=== PATIENT | female | born 1945 | race Caucasian/White ===

== ENCOUNTER → 2017-02-06 | Outpatient (CLI) | payer OTHER ==
[~2017-02-06] MED LIST: ACYC-114 PO; ALBU6.7H INH; ALEN70TA5 PO; ASCO500T6 PO; ASPI-496 PO; CALC600T4 PO; CLOB15CR19 TP; GARL1TAB PO; IPRA4AER INH; OMEP-110 PO; OXYB5TAB7 PO; RANI300C PO; SIMV20TA3 PO; TRAM50TA2 PO; UBID100C24 PO; VITA1CAP PO; VITA200C33 PO
== END | disposition home or self-care (01) ==
LOC: STAR 09:03
PROVIDERS: ATTEND Orthopaedic Surgery Foot and Ankle Surgery
DX: Z02.9 Encounter for administrative examinations, unspecified (principal)

== ENCOUNTER 2017-02-28 10:21 | Inpatient (IN) | payer OTHER ==
[~2017-02-28] VITALS: Ht 176.5 cm; Wt 109.2 kg
[2017-02-28] MEDS ORDERED: FENTANYL PF 100 MCG/2ML ONE (12:49)
[2017-02-28] MEDS ORDERED: MIDAZOLAM 1 MG/ML, 2ML ONE (12:49)
[2017-02-28 13:16] VITALS: BP 132/78
[2017-02-28] MEDS ORDERED: LACTATED RINGERS 1,000 ML IV SCH (13:21)
[2017-02-28] MEDS ORDERED: BUPIVACAINE/PF 0.5% ONE (15:42)
[2017-02-28] MEDS ORDERED: LIDOCAINE/PF 1%, 30ML ONE (16:02)
[2017-02-28] MEDS ORDERED: DEXAMETHASONE 4 MG/ML, 1ML ONE (16:26)
[2017-02-28] MEDS ORDERED: CEFAZOLIN 1,000 MG ONE (16:26)
[2017-02-28] MEDS ORDERED: ONDANSETRON 2MG/ML, 2ML ONE (16:26)
[2017-02-28] MEDS ORDERED: LIDOCAINE GEL 2%, 5ML ONE (16:26)
[2017-02-28] MEDS ORDERED: SUCCINYLCHOLINE 20 MG/ML, 10ML ONE (16:26)
[2017-02-28] MEDS ORDERED: PROPOFOL 10 MG/ML, 20ML ONE (16:26)
[2017-02-28] MEDS ORDERED: ROPIvacaine/PF 0.2%, 100ML 550 ML (check volume) INJ ONE (16:30)
[2017-02-28] MEDS ORDERED: EPHEDRINE 50 MG/ML, 1ML IVPush PRN (17:00)
[2017-02-28] MEDS ORDERED: PROMETHAZINE 25 MG/ML, 1ML IV PRN (17:00)
[2017-02-28] MEDS ORDERED: LORazepam 2 MG/ML, 1ML IVPush PRN (17:00)
[2017-02-28] MEDS ORDERED: DIAZEPAM 5 MG/ML, 2ML IVPush PRN (17:00)
[2017-02-28] MEDS ORDERED: LABETALOL 5MG/ML, 20ML IV PRN (17:00)
[2017-02-28] MEDS ORDERED: morphine SULFATE 10 MG/ML, 1ML IV PRN (17:00)
[2017-02-28] MEDS ORDERED: FENTANYL PF 100 MCG/2ML IV PRN (17:00)
[2017-02-28] MEDS ORDERED: MEPERIDINE/PF 25MG/0.5ML IVPush PRN (17:00)
[2017-02-28] MEDS ORDERED: ALBUTEROL/IPRATROPIUM 2.5MG/0.5MG, 3 ML NPPB PRN (17:00)
[2017-02-28] MEDS ORDERED: MIDAZOLAM 1 MG/ML, 2ML IV PRN (17:00)
[2017-02-28] MEDS ORDERED: ACETAMINOPHEN 325 MG TABLET PO PRN ×2 (17:00→21:00)
[2017-02-28] MEDS ORDERED: ONDANSETRON 2MG/ML, 2ML IVPush PRN (17:00)
[2017-02-28] MEDS ORDERED: hydrALAzine 20 MG/ML, 1ML IV PRN (17:00)
[2017-02-28] MEDS ORDERED: HYDROmorphone 1 MG/ML, 1ML IV PRN ×2 (17:00→21:00)
[2017-02-28] MEDS ORDERED: LABETALOL 5MG/ML, 20ML ONE (18:12)
[2017-02-28] MEDS ORDERED: ACETAMINOPHEN 650 MG/20.3 ML UDC ONE (19:20)
[2017-02-28] MEDS ORDERED: ACETAMINOPHEN 325 MG TABLET ONE (19:20)
[2017-02-28] MEDS ORDERED: BISACODYL 10 MG SUPP PR PRN (20:30)
[2017-02-28] MEDS ORDERED: SENNA/DOCUSATE TABLET PO PRN (20:30)
[2017-02-28] MEDS ORDERED: ALBUTEROL SULFATE 90 MCG IH PRN ×2 (21:00→21:37)
[2017-02-28] MEDS ORDERED: DIPHENHYDRAMINE 25 MG CAPSULE PO PRN (21:00)
[2017-02-28] MEDS ORDERED: DIAZEPAM 5 MG TABLET PO PRN (21:00)
[2017-02-28] MEDS ORDERED: RANITIDINE 300 MG PO SCH ×2 (21:00→21:36)
[2017-02-28] MEDS: SODIUM CHLORIDE FLUSH 10ML SYR IVF SCH (21:00)
[2017-02-28] MEDS ORDERED: ONDANSETRON 2MG/ML, 2ML IV PRN (21:00)
[2017-02-28] MEDS ORDERED: ACYCLOVIR 400 MG PO SCH ×2 (21:00→21:37)
[2017-02-28] MEDS ORDERED: PROMETHAZINE 25 MG/ML, 1ML IM PRN (21:00)
[2017-02-28] MEDS ORDERED: ZOLPIDEM 5MG TABLET PO PRN (21:00)
[2017-02-28] MEDS: DOCUSATE 100 MG CAPSULE PO SCH (21:00)
[2017-02-28] MEDS: CLOBETASOL PROPIONATE TP SCH (21:00)
[2017-02-28 23:18] VITALS: BP 95/61
[2017-03-01] MEDS: CEFAZOLIN PMX 2GM/100ML 100 ML IVPB SCH ×2 (00:18→08:40)
[2017-03-01 03:33] VITALS: BP 111/62
[2017-03-01] MEDS ORDERED: ENOXAPARIN 40 MG/0.4 ML SQ SCH (06:00)
[2017-03-01 07:54] VITALS: BP 89/52
[2017-03-01 08:35] VITALS: BP 98/59
[2017-03-01] MEDS: CLOBETASOL PROPIONATE TP SCH (08:45)
[2017-03-01] MEDS ORDERED: OXYBUTYNIN 10 MG PO SCH (09:00)
[2017-03-01] MEDS ORDERED: [UNRECOGNIZED DRUG - OTHER] PO SCH (09:00)
[2017-03-01] MEDS ORDERED: ASPIRIN 81 MG PO SCH (09:00)
[2017-03-01] MEDS ORDERED: UBIDECARENONE PO SCH (09:00)
[2017-03-01] MEDS ORDERED: OMEPRAZOLE 20 MG PO SCH (09:00)
[2017-03-01] MEDS: DOCUSATE 100 MG CAPSULE PO SCH (09:24)
[2017-03-01] MEDS ORDERED: ASPIRIN 81 MG TABLET CHEW PO SCH (10:00)
[2017-03-01] MEDS ORDERED: ASPI-650 PO (11:00)
[2017-03-01] MEDS: SODIUM CHLORIDE FLUSH 10ML SYR IVF SCH ×2 (11:35→11:52)
[2017-03-01 12:50] VITALS: BP 110/68
[2017-03-02] MEDS ORDERED: (Alendronate Sodium 70 MG) PO SCH (09:00)
== END 2017-03-01 13:15 | disposition home or self-care (01) | DRG 469 ==
LOC: ORIP 12:27 → 4NOR 20:00
PROVIDERS: ADMIT Orthopaedic Surgery Foot and Ankle Surgery; ATTEND Orthopaedic Surgery Foot and Ankle Surgery
PROC: 0QPH04Z Removal of Internal Fixation Device from Left Tibia, Open Approach (ICD-10-PCS; 2017-02-28)
PROC: 0L8P0ZZ Division of Left Lower Leg Tendon, Open Approach (ICD-10-PCS; 2017-02-28)
PROC: 0SRG0JZ Replacement of Left Ankle Joint with Synthetic Substitute, Open Approach (ICD-10-PCS; principal; 2017-02-28 15:30)
DX: M12.572 Traumatic arthropathy, left ankle and foot (principal); J44.9 Chronic obstructive pulmonary disease, unspecified; S82.873A Displaced pilon fracture of unspecified tibia, initial encounter for closed fracture; E78.5 Hyperlipidemia, unspecified; K21.9 Gastro-esophageal reflux disease without esophagitis; Z88.2 Allergy status to sulfonamides; Z88.8 Allergy status to other drugs, medicaments and biological substances
CPT/HCPCS: 36415; 76000; 76001; 82565; J0690; J1100; J1650; J2250; J2405; J2704; J2795; J3010; J3490; C1776; J0330; J7120

== ENCOUNTER 2017-03-01 22:30 | Inpatient (IN) | payer OTHER ==
[~2017-03-01] VITALS: Ht 175.3 cm; Wt 97.2 kg
[~2017-03-01 22:30] MED LIST changes: +ASPI-650 PO
[2017-03-01] MEDS ORDERED: SODIUM CHLORIDE FLUSH 10ML SYR IVF ONE (23:00)
[2017-03-01 23:09] LABS: HEMATOCRIT 36.6 % (34.6-47.8); HEMOGLOBIN 12.1 g/dL (11.7-16.4); WHITE BLOOD COUNT 14.8 x10^3/uL (3.4-10)
[2017-03-01 23:16] LABS: BLOOD UREA NITROGEN 15 mg/dL (7-18)
[2017-03-02] MEDS: SIMVASTATIN 20 MG TABLET PO SCH ×2 (01:00→20:42)
[2017-03-02] MEDS ORDERED: DOCUSATE 100 MG CAPSULE PO PRN (01:00)
[2017-03-02] MEDS ORDERED: ENALAPRILAT 1.25 MG/ML, 2ML IVPush PRN (01:00)
[2017-03-02] MEDS ORDERED: TEMAZEPAM 15 MG CAPSULE PO PRN (01:00)
[2017-03-02] MEDS ORDERED: ONDANSETRON ODT 4 MG PO PRN (01:00)
[2017-03-02] MEDS ORDERED: FAMOTIDINE 40 MG TABLET PO SCH (01:00)
[2017-03-02] MEDS ORDERED: ASPIRIN 325 MG TABLET EC PO PRN (01:00)
[2017-03-02] MEDS ORDERED: ACETAMINOPHEN 325 MG TABLET PO PRN (01:00)
[2017-03-02] MEDS ORDERED: ALBUTEROL SULFATE 2.5 MG/3 ML NPPB PRN (01:30)
[2017-03-02 03:22] VITALS: BP 129/75
[2017-03-02 03:38] VITALS: BP 113/58
[2017-03-02 07:34] VITALS: BP 118/56
[2017-03-02 08:18] LABS: HEMATOCRIT 34.6 % (34.6-47.8); HEMOGLOBIN 11.4 g/dL (11.7-16.4); WHITE BLOOD COUNT 11.9 x10^3/uL (3.4-10)
[2017-03-02] MEDS: CLOBETASOL PROPIONATE CRM 0.05%, 15GM TP SCH ×2 (08:24→21:00)
[2017-03-02] MEDS: MULTIVITS,STRESS FORMULA 1 TABLET PO SCH (08:25)
[2017-03-02] MEDS: UBIDECARENONE PO SCH (08:27)
[2017-03-02 08:30] LABS: BLOOD UREA NITROGEN 13 mg/dL (7-18)
[2017-03-02] MEDS: OMEPRAZOLE 20 MG CAPSULE.DR PO SCH (08:36)
[2017-03-02] MEDS: ACYCLOVIR 400 MG TABLET PO SCH ×2 (08:37→20:43)
[2017-03-02] MEDS: ENOXAPARIN 40 MG/0.4 ML SQ SCH (08:38)
[2017-03-02] MEDS ORDERED: OXYBUTYNIN 10 MG HOMEMEDPO SCH (09:00)
[2017-03-02] MEDS ORDERED: OXYBUTYNIN CHLORIDE 5 MG TABLET PO SCH (09:00)
[2017-03-02 12:43] LABS: PATH.CAST-FLAG NOT PRESENT; SPERM-FLAG NOT PRESENT; SRC-FLAG NOT PRESENT; XTAL-FLAG NOT PRESENT; YLC-FLAG NOT PRESENT
[2017-03-02 12:59] VITALS: BP 106/55
[2017-03-02] MEDS ORDERED: ALENDRONATE 70 MG TABLET PO SCH (16:30)
[2017-03-02] MEDS: ALBUTEROL/IPRATROPIUM 2.5MG/0.5MG, 3 ML NPPB SCH ×2 (17:00→23:00)
[2017-03-02 20:15] VITALS: BP 116/58
[2017-03-02] MEDS: RANITIDINE 300 MG HOMEMEDPO SCH (20:43)
[2017-03-02] MEDS: OXYBUTYNIN 10 MG HOMEMEDPO SCH (20:45)
[2017-03-03 02:24] VITALS: BP 113/53
[2017-03-03] MEDS: ALBUTEROL/IPRATROPIUM 2.5MG/0.5MG, 3 ML NPPB SCH (04:59)
[2017-03-03 05:22] LABS: HEMATOCRIT 34.8 % (34.6-47.8); HEMOGLOBIN 11.5 g/dL (11.7-16.4)
[2017-03-03 05:27] LABS: BLOOD UREA NITROGEN 9 mg/dL (7-18)
[2017-03-03] MEDS: OMEPRAZOLE 20 MG CAPSULE.DR PO SCH (05:32)
[2017-03-03] MEDS: ACYCLOVIR 400 MG TABLET PO SCH ×2 (05:32→21:00)
[2017-03-03 06:30] VITALS: BP 110/60
[2017-03-03] MEDS ORDERED: ALENDRONATE 70 MG TABLET PO SCH (06:30)
[2017-03-03] MEDS ORDERED: POTASSIUM CHLORIDE 20 MEQ TAB.ER.PRT PO ONE (06:30)
[2017-03-03] MEDS: CALCIUM CARBONATE 500 MG TAB.CHEW PO SCH (09:00)
[2017-03-03] MEDS: MULTIVITS,STRESS FORMULA 1 TABLET PO SCH (09:00)
[2017-03-03] MEDS: UBIDECARENONE PO SCH (09:00)
[2017-03-03] MEDS: VITAMIN E 400 UNITS CAPSULE PO SCH (09:00)
[2017-03-03] MEDS: ASCORBIC ACID 500 MG TABLET PO SCH (09:00)
[2017-03-03] MEDS: CLOBETASOL PROPIONATE CRM 0.05%, 15GM TP SCH ×2 (09:00→21:00)
[2017-03-03] MEDS: ENOXAPARIN 40 MG/0.4 ML SQ SCH (09:17)
[2017-03-03 12:24] VITALS: BP 111/47
[2017-03-03 19:10] VITALS: BP 112/60
[2017-03-03] MEDS: RANITIDINE 300 MG HOMEMEDPO SCH (21:00)
[2017-03-03] MEDS: OXYBUTYNIN 10 MG HOMEMEDPO SCH (21:00)
[2017-03-03] MEDS: SIMVASTATIN 20 MG TABLET PO SCH (21:00)
[2017-03-04 02:53] VITALS: BP 114/66
[2017-03-04 07:30] VITALS: BP 142/75
[2017-03-04] MEDS: OXYBUTYNIN 10 MG HOMEMEDPO SCH (09:00)
[2017-03-04] MEDS: UBIDECARENONE PO SCH (09:00)
[2017-03-04] MEDS: VITAMIN E 400 UNITS CAPSULE PO SCH (09:00)
[2017-03-04] MEDS: MULTIVITS,STRESS FORMULA 1 TABLET PO SCH (09:00)
[2017-03-04] MEDS: CLOBETASOL PROPIONATE CRM 0.05%, 15GM TP SCH ×2 (09:00→20:56)
[2017-03-04] MEDS: CALCIUM CARBONATE 500 MG TAB.CHEW PO SCH (09:00)
[2017-03-04] MEDS: ASCORBIC ACID 500 MG TABLET PO SCH (09:00)
[2017-03-04] MEDS: OMEPRAZOLE 20 MG CAPSULE.DR PO SCH (09:39)
[2017-03-04] MEDS: ACYCLOVIR 400 MG TABLET PO SCH ×2 (09:39→20:56)
[2017-03-04] MEDS: ENOXAPARIN 40 MG/0.4 ML SQ SCH (09:40)
[2017-03-04 15:10] VITALS: BP 136/80
[2017-03-04 20:02] VITALS: BP 128/82
[2017-03-04] MEDS: RANITIDINE 300 MG HOMEMEDPO SCH (20:56)
[2017-03-04] MEDS: SIMVASTATIN 20 MG TABLET PO SCH (21:00)
[2017-03-04] MEDS ORDERED: OXYBUTYNIN 10 MG HOMEMEDPO SCH (21:00)
[2017-03-05 03:15] VITALS: BP 138/53
[2017-03-05 07:26] VITALS: BP 132/76
[2017-03-05] MEDS: VITAMIN E 400 UNITS CAPSULE PO SCH (09:00)
[2017-03-05] MEDS: OMEPRAZOLE 20 MG CAPSULE.DR PO SCH (09:27)
[2017-03-05] MEDS: ENOXAPARIN 40 MG/0.4 ML SQ SCH (09:28)
[2017-03-05] MEDS: ACYCLOVIR 400 MG TABLET PO SCH (09:28)
[2017-03-05] MEDS: MULTIVITS,STRESS FORMULA 1 TABLET PO SCH (09:28)
[2017-03-05] MEDS: ASCORBIC ACID 500 MG TABLET PO SCH (09:28)
[2017-03-05] MEDS: CALCIUM CARBONATE 500 MG TAB.CHEW PO SCH (09:29)
[2017-03-05] MEDS: UBIDECARENONE PO SCH (09:29)
[2017-03-05] MEDS: CLOBETASOL PROPIONATE CRM 0.05%, 15GM TP SCH (09:29)
[2017-03-05] MEDS ORDERED: ASPI-650 PO (09:52)
[2017-03-05 11:12] VITALS: BP 127/75
== END 2017-03-05 11:15 | DRG 556 ==
LOC: ED 03-02 → EDIP 03-02 00:32 → 4NOR 03-02 00:48
PROVIDERS: ADMIT Internal Medicine; ATTEND Hospitalist
DX: R26.2 Difficulty in walking, not elsewhere classified (principal); J44.9 Chronic obstructive pulmonary disease, unspecified; D64.9 Anemia, unspecified; D72.829 Elevated white blood cell count, unspecified; N32.81 Overactive bladder; D72.828 Other elevated white blood cell count; K21.9 Gastro-esophageal reflux disease without esophagitis; Z82.49 Family history of ischemic heart disease and other diseases of the circulatory system; Z87.891 Personal history of nicotine dependence
CPT/HCPCS: 36415; 80048; 81001; 85025; 87040; 87086; 99285; J1650